=== PATIENT | female | born 1960 | race African-American/Black ===

== ENCOUNTER 2018-03-06 12:47 | Emergency (ER) | payer OTHER, BC ==
[2018-03-06] MEDS ORDERED: Ketorolac Tromethamine 60 MG/2 ML VIAL ONE (13:26)
[2018-03-06] MEDS ORDERED: Diazepam 5 MG TAB ONE (13:26)
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
== END 2018-03-06 14:10 | disposition home or self-care (01) ==
LOC: ERS 12:47
DX: S16.1XXA Strain of muscle, fascia and tendon at neck level, initial encounter (principal); I10 Essential (primary) hypertension; V89.2XXA Person injured in unspecified motor-vehicle accident, traffic, initial encounter
CPT/HCPCS: 72040; 96372; J1885

== ENCOUNTER 2020-01-25 09:47 | Emergency (ER) | payer BC, OTHER ==
[2020-01-25 12:49] LABS: #Basophils 0.1 thou/uL (0.0-0.2); #Lymphocytes 2.5 thou/uL (1.20-3.40); #Monocytes 0.6 thou/uL (0.11-0.59); #Neutrophils 5.4 thou/uL (1.40-6.50); %Basophils 1.1 % (0.0-1.0); %Eosinophils 0.4 % (0.0-10.0); %Lymphocytes 29.2 % (21.0-51.0); %Monocytes 6.3 % (0.0-10.0); Hemoglobin 15.9 g/dL (12.0-16.0); Mean Corpuscular HGB CONC 32.3 g/dL (32.0-36.0); Mean Corpuscular Hemoglobin 27.8 pg (27.0-31.0); Mean Corpuscular Volume 86.1 fL (78.0-98.0); Mean Platelet Volume 8.7 fL (7.4-10.4); Platelet Count 301 thou/uL (130-400); RBC Distribution Width 13.4 % (11.5-14.5); Red Blood Cell (RBC) Count 5.73 mill/uL (4.20-5.40); White Blood Cell (WBC) Count 8.6 thou/uL (4.8-10.8)
[2020-01-25 13:06] LABS: ALT (SGPT) 7 U/L (8-55); AST (SGOT) 11 U/L (5-34); Albumin 4.2 g/dL (3.5-5.0); Alkaline Phosphatase 87 U/L (40-110); Anion Gap 17 mmol/L (10-20); BUN (Urea Nitrogen) 11 mg/dL (9.8-20.1); Bilirubin, Total 0.5 mg/dL (0.2-1.2); Calc. Creatinine Clearance 0 mL/min (70-130); Calcium 9.5 mg/dL (7.8-10.44); Carbon Dioxide 21 mmol/L (22-29); Chloride 104 mmol/L (98-107); Estimated GFR-MDRD 72; Globulin 3.5 g/dL (2.4-3.5); Glucose 99 mg/dL (70-105); Potassium 3.8 mmol/L (3.5-5.1); Protein, Total 7.7 g/dL (6.0-8.3); Sodium 138 mmol/L (136-145)
--- NOTE | 2020-01-25 13:09 | CT ---
CT neck soft tissues with contrast: 01/25/2020 HISTORY: 59-year-old female pain and swelling at the chin FINDINGS: There is diffusely poor dilatation, with numerous prominent dental defects of the crown (severe sg s) and missing teeth. Furthermore, there are numerous periapical lucencies surrounding the roots of multiple teeth. 2 of these lucencies extend through small cortical defects in the outer cortical christopher faces of the mandible, one parasymphyseal, a few millimeters to the left of midline; and the other at right anterior mandibular body. There is edema in the overlying buccal spaces. There is increased enhancement of bilateral sublingual glands, and there may be edema in the sublingual space (floor of mouth). No evidence of abscess larger than 1 cm. No major pathology identified involving parotid, submandibular, parapharyngeal, retropharyngeal, or posterior cervical, spaces. Multiple left thyroid nodules. 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 Unremarkable larynx. IMPRESSION: 1. Diffuse, severe odontogenic disease. 2. At least 2 osseous cortical defects caused by the odontogenic disease involving the mandible, with associated inflammation, presumably cellulitis, involving anterior mandibular buccal space, and possibly involving sublingual space.
[2020-01-25] MEDS ORDERED: Clindamycin/D5W 900 mg/50 ml Premix Bag ONE (13:20)
[2020-01-25] MEDS ORDERED: Iopamidol-370 76% 500 ML 1 ML ONE (13:33)
[2020-01-25] MEDS ORDERED: Ketorolac Tromethamine 30 MG/ML VIAL ONE (14:33)
== END 2020-01-25 16:03 | disposition home or self-care (01) ==
LOC: ERS 09:47
DX: K04.7 Periapical abscess without sinus (principal); J45.909 Unspecified asthma, uncomplicated; I10 Essential (primary) hypertension; F32.9 Major depressive disorder, single episode, unspecified; Z87.891 Personal history of nicotine dependence; Z79.899 Other long term (current) drug therapy; Z79.51 Long term (current) use of inhaled steroids
CPT/HCPCS: 70491; 80053; 85025; 96365; 96375; J1885; J3490; Q9967